=== PATIENT | female | born 1950 | race Caucasian/White ===

== ENCOUNTER 2019-02-27 11:34 | Outpatient (CLI) | payer MEDICARE | END 2019-02-27 23:59 | disposition home or self-care (01) | LOC: CVU 11:34 | PROVIDERS: ATTEND Surgery Vascular Surgery | DX: I83.91 Asymptomatic varicose veins of right lower extremity (principal) | CPT/HCPCS: 93970 ==

== ENCOUNTER → 2019-04-06 | Outpatient (CLI) | payer MEDICARE | END | disposition home or self-care (01) | LOC: CFH 07:39 | PROVIDERS: ATTEND Surgery Vascular Surgery | DX: I82.491 Acute embolism and thrombosis of other specified deep vein of right lower extremity (principal); I87.2 Venous insufficiency (chronic) (peripheral); R60.9 Edema, unspecified ==